=== PATIENT | female | born 1990 | race Hispanic/Latino ===

== ENCOUNTER 2024-12-30 12:12 | Emergency (ER) | payer BC ==
[~2024-12-30] VITALS: Ht 160 cm; Wt 85.7 kg
[2024-12-30] MEDS ORDERED: SODIUM CHLORIDE FLUSH 10 ML SYR IV PRN (12:45)
[2024-12-30 13:03] LABS: BASOPHILS % 0.9 % (0.0-1.0); EOSINOPHILS % 1.6 % (0.0-6.0); LYMPHOCYTES % 25.9 % (18.0-39.1); MONOCYTES % 7.8 % (4.4-11.3); NEUTROPHILS % 63.5 % (38.7-80.0); RED CELL DISTRIBUTION WIDTH 18.3 % (11.7-14.4)
[2024-12-30] MEDS: SODIUM CHLORIDE 0.9% 1000ML 1,000 ML IV ONE (13:08)
[2024-12-30 13:14] LABS: EST GLOMERULAR FILTRATION RATE 116 ML/MIN (>=60)
[2024-12-30 14:58] VITALS: PULSE 69; RESP 17; TEMP 98.4; O2SAT 100
== END 2024-12-30 15:11 | disposition home or self-care (01) ==
LOC: ER 12:30
DX: R06.02 Shortness of breath (principal); R55 Syncope and collapse; R53.83 Other fatigue; S39.82XA Other specified injuries of lower back, initial encounter; W01.0XXA Fall on same level from slipping, tripping and stumbling without subsequent striking against object, initial encounter; Y92.89 Other specified places as the place of occurrence of the external cause
CPT/HCPCS: 36415; 71045; 80053; 84439; 84443; 84484; 84702; 85025; 93005; 94760; 99284; J7030